=== PATIENT | male | born 1955 | race Hispanic/Latino ===

== ENCOUNTER 2023-06-17 18:56 | Emergency (ER) | payer MEDICARE, SELFPAY ==
[2023-06-17 19:03] VITALS: BP 136/92
[2023-06-17 19:21] LABS: % Basophils 1.2 % (0-2); % Eosinophils 2.8 % (0-6); % Immature Granulocytes 0.2 % (0-0.5); % Lymphocytes 28.1 % (20.5-51.1); % Monocytes 10.9 % (1.7-9.3); % Neutrophils 56.8 % (42.2-75.2); Absolute Basophils 0.1 10^3/uL (0-0.2); Absolute Eosinophils 0.3 10^3/uL (0-0.7); Absolute Lymphocytes 2.5 10^3/uL (1.2-3.4); Absolute Neutrophils 5.1 10^3/uL (1.4-6.5); Hematocrit 42.7 % (39.0-52.0); Hemoglobin 15.3 g/dL (13.0-18.0); Mean Corp Hgb Conc. 35.8 g/dL (33.0-37.0); Mean Corpuscular Hgb 31.6 pg (27.0-31.0); Mean Corpuscular Volume 88.2 fL (80.0-94.0); Mean Platelet Volume 10.2 fL (7.4-10.4); Nucleated Red Blood Cells % 0 % (-); Platelet Count 401 10^3/uL (130-400); Red Blood Cell Count 4.84 10^6/uL (4.70-6.10); Red Cell Dist. Width 12.3 % (11.5-14.5)
[2023-06-17 19:35] LABS: ALT (SGPT) 55 U/L (0-50); AST (SGOT) 39 U/L (17-59); Albumin 4.5 g/dl (3.5-5.0); Alkaline Phosphatase 84 U/L (38-126); Blood Urea Nitrogen 21 mg/dl (9-20); Calcium 9.8 mg/dl (8.4-10.2); Carbon Dioxide 25 mmol/L (22-30); Chloride 105 mmol/L (98-107); Glucose 96 mg/dl (70-99); Potassium 4.2 mmol/L (3.5-5.1); Sodium 139 mmol/L (135-145); Total Bilirubin 0.6 mg/dl (0.2-1.3); Total Protein 7.8 g/dl (6.3-8.2); eGFR > 60.00
[2023-06-17 20:10] LABS: TSH Reflex To Free T4 2.06 uIU/ml (0.47-4.68)
[2023-06-17 22:46] VITALS: BP 136/87
[2023-06-17 23:00] VITALS: BP 120/87; BMI 28.1
--- NOTE | 2023-06-17 23:07 | ED.GENMED ---
History of Present Illness
<KIRK Delgado - Last Filed: 06/18/23 03:44>
General
Chief Complaint: Heart Rate Problem
Time Seen by Provider: 06/17/23 23:06
Travel History
Have you had any contact with someone who has COVID-19?: No
Do you have any symptoms of coronavirus? Fever > 100 degrees, chills, cough, shortness of breath, sore throat, loss of taste or smell, muscle aches, or headache?: No
History of Present Illness
History of Present Illness:
This is a 68 yo male PMH HTN, HLD, glaucoma presenting for increased pulse starting this afternoon. He states he was taking his BP at home and noticed the pulse was 167. He went to the urgent care shortly after, where his pulse was 115 and he was
recommended to come to the ED. His pulse was elevated for a total time of ~3 hrs. Pulse has been ~80 since his arrival here. He admits to an associated mild headache this afternoon, as well as short-lived SOB for about 5 minutes at the time he
noticed his high pulse, which he attributes to anxiety. He denies any chest pain, L arm/jaw pain, palpitations, nausea, vomiting, fever, chills, dizziness. He was not given any medications at the urgent care. He denies past history of chest pain,
SOB.
Review of Systems
<KIRK Delgado - Last Filed: 06/18/23 03:44>
Review of Systems
Allergies reviewed?: Yes
Constitutional: Reports no symptoms
Respiratory: Reports no symptoms
Cardiac: Reports other (tachycardia as high as 167 prior to arrival)
ABD/GI: Reports no symptoms
Neurological: Reports no symptoms
Phy Exam
<KIRK Delgado - Last Filed: 06/18/23 03:44>
General Physical Exam
General Presentation: well appearing
General age: appears stated age
General Habitus: normal
General Mental: alert
Eye Exam
Eye Exam: PERRL
Cardiovascular Exam
Cardiovascular Exam: regular rate/rhythm
Pulmonary Exam
Pulmonary Exam: lungs clear
Neurological Exam
Neurological Exam: alert and oriented x3
Course
<KIRK Delgado - Last Filed: 06/18/23 03:44>
Orders/Labs/Results
Orders:
Orders
06/17/23 19:06
Electrocardiogram (*1) Urgent
Reason for Study: Tachycardia
EKG- Treatment ONCE
06/17/23 19:11
Complete Blood Count/With Diff Urgent
Comprehensive Metabolic Panel Urgent
TSH Reflex To Free T4 Urgent
06/18/23 00:30
CT Chest Pe Study Urgent
Reason For Exam: resting tachycardia-SOB, fam hx PE
Abnormal Lab Results
06/17/23
19:11
MCH 31.6 H pg
(27.0-31.0)
Plt Count 401 H 10^3/uL
(130-400)
Absolute Monos (auto) 1.0 H 10^3/uL
(0.1-0.6)
Monocytes % 10.9 H %
(1.7-9.3)
BUN 21 H mg/dl
(9-20)
ALT 55 H U/L
(0-50)
06/17/23 19:11
06/17/23 19:11
Vital Signs
Initial and Last Documented VS:
Initial Vital Signs
Temp Pulse Resp BP Pulse Ox
98.5 F 116 18 136/92 98
06/17/23 19:03 06/17/23 19:03 06/17/23 19:03 06/17/23 19:03 06/17/23 19:03
Last Documented Vital Signs
Temp Pulse Resp BP Pulse Ox
98.5 F 73 13 119/78 96
06/17/23 19:03 06/18/23 01:45 06/18/23 01:45 06/18/23 01:25 06/18/23 01:45
<Raven Wang, DO - Last Filed: 06/18/23 07:27>
Orders/Labs/Results
Orders:
Orders
06/17/23 19:06
Electrocardiogram (*1) Urgent
Reason for Study: Tachycardia
EKG- Treatment ONCE
06/17/23 19:11
Complete Blood Count/With Diff Urgent
Comprehensive Metabolic Panel Urgent
TSH Reflex To Free T4 Urgent
06/18/23 00:30
CT Chest Pe Study Urgent
Reason For Exam: resting tachycardia-SOB, fam hx PE
Abnormal Lab Results
06/17/23
19:11
MCH 31.6 H pg
(27.0-31.0)
Plt Count 401 H 10^3/uL
(130-400)
Absolute Monos (auto) 1.0 H 10^3/uL
(0.1-0.6)
Monocytes % 10.9 H %
(1.7-9.3)
BUN 21 H mg/dl
(9-20)
ALT 55 H U/L
(0-50)
06/17/23 19:11
06/17/23 19:11
Vital Signs
Initial and Last Documented VS:
Initial Vital Signs
Temp Pulse Resp BP Pulse Ox
98.5 F 116 18 136/92 98
06/17/23 19:03 06/17/23 19:03 06/17/23 19:03 06/17/23 19:03 06/17/23 19:03
Last Documented Vital Signs
Temp Pulse Resp BP Pulse Ox
98.5 F 73 13 119/78 96
06/17/23 19:03 06/18/23 01:45 06/18/23 01:45 06/18/23 01:25 06/18/23 01:45
<KIRK Delgado - Last Filed: 06/18/23 03:44>
MDM/Problems Addressed
Differential Diagnosis Includes:
R/O RI
-he denies chest pain, palpitations,
R/O PE
-due to presentation of CT angio, family hx of unprovoked PE in son, and recent travel to [facility], will be getting CT angio
-CT angio no evidence of PE
-safe for discharge, instructed to follow up with cardiology for abnormal pulse rate
<KIRK Delgado - Last Filed: 06/18/23 03:44>
*Critical Care Note
Total Time (30-74mins, 75-104mins- exclusive of procedures): Not Applicable
<Raven Wang DO - Last Filed: 06/18/23 07:27>
*Radiology
Radiology exam reviewed: radiology read reviewed
*Pulse Oximetry
Patient hypoxic: no
*EKG
Interpreted by ED Provider?: Yes
Interpretation: abnormal
Comparison EKG: no comparison EKG present
Heart Rate: 104
Rate: tachycardiac
Rhythm: sinus
Roby: normal axis
Interval: normal interval
QRS Pattern: normal QRS
Ischemia: no ischemia
*Gl[employer]r Interpretation
Rate: tachycardiac
Interpretation: abnormal
Rhythm: sinus
ED Attending Note
<KIRK Delgado - Last Filed: 06/18/23 03:44>
-
Portions of this chart may have been created with voice recognition software.� Occasional wrong word or��sound alike� substitutions may have occurred due to the inherent limitations of voice recognition software.
<Raven Wang DO - Last Filed: 06/18/23 07:27>
ED Attending Note
Patient seen and examined by attending physician: Yes
I performed the substantive portion of visit, reviewed & personally made and approve the management plan that is documented in note by myself or MERYL.: Yes
I performed a history and physical exam of patient and discussed management with resident, I reviewed resident's note and agree with documented findings and plan of care.: Yes
ED Attending Note:
This is a 68-year-old gentleman who has history of hypertension, hyperlipidemia, GERD who presents from urgent care for evaluation of elevated heart rate which was discovered inadvertently by patient when he checked his blood pressure this evening
and found that his heart rate was registered at 160. He states his blood pressure was normal but upon recheck heart rate remained elevated at 140.
He generally checks his blood pressure once in the morning and has been stable over the past several months 110-130 systolic over 80 diastolic with normal heart rate.
He decided to check his blood pressure this evening just 'out of the blue' and was alarmed with elevated heart rate. With noticing this sustained elevated heart rate he admits that he became somewhat anxious and short of breath but prior to this
evening he has been feeling relatively well, no chest pain, no palpitations, no dizziness no lightheadedness. No fever no chills. No recent change in medications. He denies decongestant use, no drug use.
No leg pain or swelling.
He was visiting with family in [facility] over the winter and returned home early May.
He does admit to 1 episode of dyspnea on exertion while in [place] while ambulating up a steep hill in hot weather.
He was evaluated at urgent care and had EKG done that showed sinus tachycardia. Sent to the ED for further evaluation.
His son has history of unprovoked PE at age 33 and upon further testing was found to have antiphospholipid/hypercoagulable state and had been maintained on Coumadin for 2 to 3 years but then upon repeat testing, hypercoagulability resolved and he
has since discontinued anticoagulants.
GENERAL: 68-year-old gentleman appears his stated age, bright and alert, pleasant, appears in no acute distress. is accompanying.
EYE: anicteric
NECK: Supple, nontender, no meningismus, no significant adenopathy. No thyroidomegaly.
ENT: oral mucosa is moist. No rhinorrhea.
CARDIAC: Regular rate and rhythm. no murmur. No rub.
LUNGS: Clear breath sounds bilaterally, no acute respiratory distress, no wheezes/rales/rhonchi
ABDOMEN: Soft, nondistended, without focal tenderness
NEUROLOGICAL: Alert and oriented x3, no focal neuro deficits.
SKIN: Warm and dry, normal color, skin intact. No rash.
MUSCULOSKELETAL: No C/C/E. peripheral pulses are full and equal b/l. No palpable tenderness.
PSYCH: Normal and appropriate interaction.
Patient presents with apparently asymptomatic tachycardia at a rate of 160, noted on automatic blood pressure device and was noted to have sinus tachycardia upon presentation to urgent care and very mild sinus tachycardia upon arrival to the ED
which has since resolved.
Concern for tacky arrhythmia such as SVT, atrial fibrillation with spontaneous resolution/conversion.
Labs are unremarkable, no evidence of anemia, no electrolyte abnormality, normal TSH.
With persistent resting tachycardia, recent lengthy air travel and family history of hypercoagulable state must consider PE thus will check CT of the chest/PE study.
06/18/2023 0140 AM
Patient remains comfortable, asymptomatic.
Monitor continues to show normal sinus rhythm.
CT of the chest/PE study shows no evidence of PE.
Will discharge to home with recommendations for follow-up with PCP and recommend follow-up with cardiology as well.
Discharge Plan
Departure
Patient Disposition: Home (Routine Discharge)
Date of Disposition: 06/18/23
Time of Disposition: 01:38
Patient with high blood pressure during this ER visit?: No
Condition: Good
Discharge Problem:
Tachycardia
Instructions: Sinus Tachycardia (DC), Tachycardia (DC)
Referrals:
Wil Hall MD [Family Provider] - Call in 1-3 days for appt
Cabrera Fofana MD [Active] - Call in 1-3 days for appt
Interventions
Interventions:
*Risk Screen - Suicide Last Done: 06/17/23 19:03
*General Assessment Last Done: 06/17/23 19:03
*Neglect/Abuse Screening Last Done: 06/17/23 19:03
ED- Fall Risk Assessment Last Done: 06/17/23 22:41
*ED COVID-19 Vaccine History Last Done: 06/17/23 19:03
*Nursing Disposition Last Done: 06/18/23 01:55
ED- Cardiac Assessment Last Done: 06/17/23 22:41
ED- Pulmonary Assessment Last Done: 06/17/23 22:41
Discharge Date and Time
Discharge Date/Time: 06/18/23 01:55
Print Language: LAO
[2023-06-18] VITALS: BP 135/81
[2023-06-18 01:25] VITALS: BP 119/78
== END 2023-06-18 01:55 | disposition home or self-care (01) ==
LOC: EMR 18:56
PROVIDERS: Emergency Medicine; EMERGENCY PHYSICIAN Emergency Medicine; FAMILY PHYSICIAN Internal Medicine
DX: R51.9 Headache, unspecified (principal); I10 Essential (primary) hypertension; E78.00 Pure hypercholesterolemia, unspecified; H40.9 Unspecified glaucoma; F41.9 Anxiety disorder, unspecified; K21.9 Gastro-esophageal reflux disease without esophagitis; Z82.49 Family history of ischemic heart disease and other diseases of the circulatory system
CPT/HCPCS: 99284; 71275; 80053; 84443; 85025; 93005; Q9967

== ENCOUNTER → 2023-07-02 13:18 | Outpatient (REF) | payer MEDICARE, SELFPAY | LOC: RCS 13:18 | PROVIDERS: ATTENDING PHYSICIAN Internal Medicine; REFERRING PHYSICIAN Internal Medicine Cardiovascular Disease | DX: R00.0 Tachycardia, unspecified (principal) | CPT/HCPCS: 93225; 93226 ==

== ENCOUNTER → 2023-08-16 06:58 | Outpatient (REF) | payer MEDICARE, SELFPAY | LOC: RCS 06:58 | PROVIDERS: ATTENDING PHYSICIAN Internal Medicine Cardiovascular Disease; FAMILY PHYSICIAN Internal Medicine | DX: R00.2 Palpitations (principal); R00.0 Tachycardia, unspecified | CPT/HCPCS: 93306 ==